=== PATIENT | female | born 1945 | race Caucasian/White ===

== ENCOUNTER 2018-08-19 16:51 | Emergency (ER) | payer OTHER ==
[~2018-08-19] VITALS: Ht 154.9 cm; Wt 54.4 kg
[~2018-08-19 16:51] MED LIST: ADVAIR 250-501 EACH INH; ADVAIR HFA 230M12 GM INH; ASPIR 8181 MG PO; ASPIRIN325 PO; CALCIUM + VITA1 EACH PO; CALCIUM 600 +1 EA11 PO; CALCIUM 600 +1 EA12 PO; CELEXA 10 MG TA10 MG; CELEXA40 MG PO; CHANTIX1 MG; CHOLESTEROL MED; CIPRO500 MG PO; CLONIDINE0.1 PO; DOXYCYCLINE 10100 MG PO; DUONEB 2.5-0.5 M3 ML INH; ESTRACE0.5 MG PO; FLEXERIL PO; HYDROCHLOROTHIA25 M1; HYDROCODON-ACE1 EAC7; HYDROCODON-ACE1 EAC7 PO; HYDROCODON-ACE1 EACH PO; LEVAQUIN 500 M500 M2 PO; LISINOPRIL20 MG PO; MAGNESIUM250 M1 PO; MAXZIDE 75-501 EACH PO; MAXZIDE-25 MG1 EACH PO; MELOXICAM15 MG PO; MELOXICAM7.5 MG; MOBIC15 MG PO; NEURONTIN 300300 M1 PO; NEXIUM40 MG PO; OMEPRAZOLE40 MG PO; PACERONE 200 M200 M1 PO; PERCOCET 5-3251 EACH PO; PRAVACHOL40 MG PO; PREDNISONE 10 M10 M1 PO; PREDNISONE 10 M10 MG PO; PREMPRO 0.3 MG1 EACH; PREMPRO 0.45-11 EACH PO; PRILOSEC 20 MG20 MG PO; PRILOSEC40 MG PO; PROAIR HFA8.5 GM INH; PROVERA2.5 MG PO; SINGULAIR 10 MG10 M1 PO; TRAZODONE HCL100 MG PO; TRIAMTERENE-HC1 EAC3 PO; VALIUM5 MG PO; VENTOLIN HFA 1818 GM INH; VICODIN 5-5001 EACH PO; VITAMIN D1000 UNI1 PO; VITAMIN E400 UNI6 PO; ZESTRIL40 MG PO
[2018-08-19 17:13] LABS: ABSOLUTE BASOPHILS 0.1 thou/uL (0.0-0.2); ABSOLUTE EOSINOPHILS 0.2 thou/uL (0.0-0.7); ABSOLUTE LYMPHOCYTES 2.4 thou/uL (0.8-5.3); ABSOLUTE MONOCYTES 0.9 thou/uL (0.0-1.2); ABSOLUTE NEUTROPHILS 6.5 thou/uL (1.6-8.1); BASOPHILS 1.2 %; EOSINOPHILS 1.6 %; HEMATOCRIT 44.4 % (37.0-47.0); HEMOGLOBIN 14.7 gm/dL (12.0-15.0); LYMPHOCYTES 23.7 %; MCV 81.9 fL (80.0-100.0); MONOCYTES 9.3 %; NUCLEATED RBCS 0 /100WBC; PLATELET COUNT* 504 thou/uL (150-400); POLYS 64.2 %; RBC 5.42 mil/uL (4.20-5.00); RDW-CV 14.7 % (10.5-14.5); WBC 10.1 thou/uL (4.0-11.0)
[2018-08-19 17:20] LABS: ANION GAP 6 mmol/L (7-16); BUN 13 mg/dL (7-18); CALCIUM 9.5 mg/dL (8.5-10.1); CHLORIDE 95 mmol/L (98-107); CO2 31 mmol/L (21-32); CREATININE 1.1 mg/dL (0.6-1.3); GLUCOSE 145 mg/dL (70-99); POTASSIUM 3.1 mmol/L (3.5-5.1); SODIUM 132 mmol/L (136-145)
[2018-08-19 17:27] LABS: ALBUMIN 4.2 g/dL (3.4-5.0); ALKALINE PHOSPHATASE 98 U/L (46-116); SGOT 17 U/L (15-37); SGPT 23 U/L (30-65); TOTAL BILIRUBIN 0.3 mg/dL (<0.1-1.0); TOTAL PROTEIN 7.9 g/dL (6.4-8.2); TROPONIN-I LEVEL <0.06 ng/mL (<0.06)
[2018-08-19 18:09] VITALS: BP 152/117
--- NOTE | 2018-08-20 11:37 | EKG ---
[place] [address] ELECTROCARDIOGRAM REPORT Name: CAMMY FULTONLMA LISETTE [id number] Admission: 08/19/18 Attend Phys: Discharge: 08/19/18 Date of : 47 Report #: [id number] THIS REPORT FOR: //name// [facility] ED Test Date: 2018-08-19 Test Time: 17:13:47 Pat Name: LUTHER FULTON Department: Room: Gender: F Advertising Coordinator: Maeve LYNN : 1945 Requested By: Reese Begum Order Number: [id number] MD: Tulio Loredo Measurements Intervals [place] Rate: 91 P: 78 OR: 155 QRS: 81 QRSD: 74 T: 73 QT: 344 QTc: 424 Interpretive Statements Sinus rhythm Borderline right axis deviation Nonspecific T abnormalities, lateral leads Compared to ECG 05/25/2017 23:06:28 T-wave abnormality now present Atrial premature complex(es) no longer present Electronically Signed On 08-20-2018 11:37:08 CDT by Tulio Loredo [email or web address] <ELECTRONICALLY SIGNED> By: Tulio Loredo MD, FAC 08/20/18 1137 1713 1713 Tulio Loredo MD, [facility] /EPI
== END 2018-08-19 18:11 | disposition home or self-care (01) ==
LOC: M.ERS 16:51
PROVIDERS: Family Medicine
DX: M79.641 Pain in right hand (principal); J44.9 Chronic obstructive pulmonary disease, unspecified; E78.5 Hyperlipidemia, unspecified; I10 Essential (primary) hypertension; G62.9 Polyneuropathy, unspecified; F17.210 Nicotine dependence, cigarettes, uncomplicated; Z88.0 Allergy status to penicillin; Z88.2 Allergy status to sulfonamides; Z88.1 Allergy status to other antibiotic agents; Z88.8 Allergy status to other drugs, medicaments and biological substances

== ENCOUNTER 2018-12-28 07:28 | Inpatient (IN) | payer OTHER ==
[~2018-12-28] VITALS: Ht 152.4 cm; Wt 58.6 kg
[2018-12-28 07:35] VITALS: BP 138/69
[2018-12-28] MEDS ORDERED: IPRAT-ALBUT 0.5-3 ML INH (07:57)
[2018-12-28] MEDS ORDERED: FLEXERIL PO (07:57)
[2018-12-28] MEDS ORDERED: VALIUM5 MG PO (07:58)
[2018-12-28] MEDS ORDERED: SINGULAIR 10 MG10 M1 PO (08:00)
[2018-12-28 08:01] LABS: ABSOLUTE BASOPHILS 0.1 thou/uL (0.0-0.2); ABSOLUTE EOSINOPHILS 0.1 thou/uL (0.0-0.7); ABSOLUTE LYMPHOCYTES 1.6 thou/uL (0.8-5.3); ABSOLUTE MONOCYTES 1.2 thou/uL (0.0-1.2); ABSOLUTE NEUTROPHILS 9.3 thou/uL (1.6-8.1); EOSINOPHILS 0.8 %; HEMOGLOBIN 11.7 gm/dL (12.0-15.0); LYMPHOCYTES 13.2 %; MCH 27.4 pg (26.0-34.0); MCHC 32.6 g/dL (28.0-37.0); MONOCYTES 10.1 %; NUCLEATED RBCS 0 /100WBC; PLATELET COUNT* 485 thou/uL (150-400); POLYS 74.9 %; RBC 4.28 mil/uL (4.20-5.00); RDW-CV 13.8 % (10.5-14.5); WBC 12.4 thou/uL (4.0-11.0)
[2018-12-28 08:14] LABS: ANION GAP 11 mmol/L (7-16); BUN 18 mg/dL (7-18); CALCIUM 9.3 mg/dL (8.5-10.1); CHLORIDE 99 mmol/L (98-107); CO2 26 mmol/L (21-32); CREATININE 1.2 mg/dL (0.6-1.3); GLUCOSE 116 mg/dL (70-99); POTASSIUM 3.7 mmol/L (3.5-5.1); SODIUM 136 mmol/L (136-145)
[2018-12-28 08:22] LABS: ALBUMIN 3.7 g/dL (3.4-5.0); ALKALINE PHOSPHATASE 103 U/L (46-116); LIPASE 180 U/L (73-393); SGOT 23 U/L (15-37); SGPT 21 U/L (30-65); TOTAL BILIRUBIN 0.4 mg/dL (<0.1-1.0); TOTAL PROTEIN 7.8 g/dL (6.4-8.2); TROPONIN-I LEVEL <0.06 ng/mL (<0.06)
[2018-12-28] MEDS ORDERED: FLONASE 0.05%50 MCG NASAL (08:28)
--- NOTE | 2018-12-28 13:13 | EKG ---
[place] [address] ELECTROCARDIOGRAM REPORT Name: LUTHER FULTON Room: [place] [address] ADM IN .R.#: [id number] Admission: 12/28/18 Attend Phys: Walker Chance MD Discharge: Date of : 47 Report #: [id number] THIS REPORT FOR: //name// [facility] ED Test Date: 2018-12-28 Test Time: 07:51:35 Pat Name: LUTHER FULTON Department: Room: [facility] Gender: F Fabricator Foam Rubber: López ESPITIA : 1945 Requested By: Noman Borges Order Number: [id number] MD: Moshe Cason Measurements Intervals [place] Rate: 72 P: 67 MD: 165 QRS: 68 QRSD: 84 T: 66 QT: 371 QTc: 406 Interpretive Statements Sinus rhythm Baseline wander in lead(s) V6 Compared to ECG 08/19/2018 17:13:47 T-wave abnormality no longer present Electronically Signed On 12-28-2018 13:13:18 BUILDING CUSTODIAL SUPERVISOR by Moshe Cason [email or web address] <ELECTRONICALLY SIGNED> By: Moshe Cason MD, [facility] 12/28/18 1313 0751 0751 Moshe Cason MD, [facility] /EPI
[2018-12-28 13:30] VITALS: BP 112/60
[2018-12-28 15:56] VITALS: BP 119/60
[2018-12-28 16:00] VITALS: BP 118/63
[2018-12-28 20:00] VITALS: BP 154/58
[2018-12-29] VITALS: BP 142/71
[2018-12-29 04:00] VITALS: BP 144/72
[2018-12-29 04:58] LABS: HEMATOCRIT 29.6 % (37.0-47.0); MCH 28.8 pg (26.0-34.0); MCHC 33.8 g/dL (28.0-37.0); MCV 85.1 fL (80.0-100.0); MPV 7.3 fl. (7.2-11.1); RBC 3.48 mil/uL (4.20-5.00); RDW-CV 13.6 % (10.5-14.5)
[2018-12-29 05:13] LABS: CALCIUM 8.1 mg/dL (8.5-10.1); CREATININE 0.9 mg/dL (0.6-1.3); MAGNESIUM 1.4 mg/dL (1.8-2.4); POTASSIUM 4.5 mmol/L (3.5-5.1)
[2018-12-29 08:00] VITALS: BP 138/96
[2018-12-29 12:10] VITALS: BP 144/75
[2018-12-29 16:17] VITALS: BP 140/70
[2018-12-29 20:00] VITALS: BP 167/72
[2018-12-30] VITALS: BP 165/87; BP 185/87
[2018-12-30 04:00] VITALS: BP 157/70
[2018-12-30 04:49] LABS: HEMATOCRIT 29.8 % (37.0-47.0); HEMOGLOBIN 9.8 gm/dL (12.0-15.0); MCH 27.9 pg (26.0-34.0); MCHC 32.8 g/dL (28.0-37.0); MCV 85.2 fL (80.0-100.0); MPV 6.7 fl. (7.2-11.1); RBC 3.5 mil/uL (4.20-5.00); RDW-CV 14.1 % (10.5-14.5)
[2018-12-30 04:57] LABS: CALCIUM 8.6 mg/dL (8.5-10.1); CREATININE 1.1 mg/dL (0.6-1.3); MAGNESIUM 1.5 mg/dL (1.8-2.4); POTASSIUM 4.2 mmol/L (3.5-5.1)
--- NOTE | 2018-12-30 06:44 | CON ---
[address] [address] CONSULTATION Name: ENRIQUETA FULTONA LISETTE Room: [address] IN M.R.#: [id number] Admission: 12/28/18 Attend Phys: Walker Chance MD Discharge: Date of : 47 Report #: [id number] THIS REPORT FOR: //name// CC: Walker Lucas [facility] Zuri Reyes DATE OF SERVICE: 12/29/2018 PULMONARY CONSULTATION ATTENDING PHYSICIAN: Dr. Walker Chance. LOCATION: The patient is located at room 232. INDICATION FOR CONSULTATION: Hemoptysis, 5 cm right lower lobe infiltrate/mass. CLINICAL SUMMARY: Thank you for allowing me to see the patient for pulmonary consultation today. I saw her at [facility] on Tuesday12/29/2018. The patient is a 73-year-old female, prior heavy smoker, quit a year ago, came in the Emergency Room Department with cough and sputum production. She had some nonmassive hemoptysis. She coughed up some bright red blood yesterday, about a tablespoon full and did that once or twice. She is still having increased wheezing and shortness of breath. She was taking her albuterol inhalers at home. She had a nebulizer machine at home, but did not bother to take any nebulizer treatments. She states she is having some back pain and chest pain with the cough. Low-grade fever. No chills or sweats and she has been sick for a week and a week and a half now. She states she is up to date on her pneumonia vaccines and her flu vaccine immunizations. Denies any sick or ill contacts or recent travel. Has not had problems with bronchitis like this before. States she has lost 10 pounds over the last 2-3 weeks. States food is not tasting good and she is just not hungry. PAST MEDICAL HISTORY: She has a history of right carotid stenosis. She has had a history of some C-spine and back pain. She has had some COPD over the past year or two, but has not been oxygen or steroid dependent. She has also had pancreatitis in the past with some neuropathy and occasionally whether she had a seizure in the past. ALLERGIES: She has allergies or intolerances to CEFDINIR, which gives her some nausea and vomiting. PENICILLIN, which gives her itching. SULFA, which gives some itching and a rash. CEFUROXIME, which gives her loose stools and ERYTHROMYCIN, gives her loose stools. OUTPATIENT MEDICATIONS: Included triamterene 37.5 mg once daily, Meloxicam [address] [place] [address] CONSULTATION Name: DONALDOLUTHER Room: [address] IN M.R.#: [id number] Admission: 12/28/18 Attend Phys: aWlker Chance MD Discharge: Date of : 47 Report #: [id number] mg daily. She is currently on Levaquin 750 mg p.o. daily, trazodone 100 mg at bedtime, montelukast 10 mg at bedtime, Prinivil, dose is 20 mg b.i.d., DuoNeb every 4 hours. Solu-Medrol dose is 40 mg every 8 hours scheduled, fentanyl p.r.n. for pain. Some potassium supplement. She is on oxygen at 2 liters. FAMILY HISTORY: Positive for premature heart disease. SOCIAL HISTORY: States she quit smoking about a year ago and was a pack a day smoker. She has a 57-afdy-glwh history. She lives at home. She denies any alcohol use or occupational exposure. REVIEW OF SYSTEMS: A 14-point review of systems reviewed and was negative except for pertinent positives noted in history and physical exam. PHYSICAL EXAMINATION: GENERAL: A pleasant 73-year-old female, moderately ill, coughing, on oxygen at 2 liters. VITAL SIGNS: Stable. Blood pressure is 144/72, heart rate 76, respirations were 20. Temperature is 36.4 degrees, saturation on 2 liters 96%. She is 5 feet 3 inches tall, weighs 58 kilograms or 128 pounds, BMI is 25. HEENT: Nares and pharynx are clear. Mucous membranes are slightly dry. No thrush noted. NECK: Supple, without any masses or adenopathy. CHEST: Shows bilateral rhonchi with expiratory wheeze, quite tight, a little more prominent on the right than on the left, mostly posteriorly. CARDIOVASCULAR: Shows diminished heart tones, regular rate and rhythm. Heart rate 76. ABDOMEN: Soft, without masses or megaly. EXTREMITIES: No calf tenderness. No cyanosis, clubbing or edema. NEUROLOGIC: Grossly intact. She can move all fours upon command. Sit up in the bed without problems. LABORATORY DATA: From 12/29/2018 shows hemoglobin is 10, white count 10,000, platelets are 391,000, normal differential. Sodium is 137, potassium is 4.5, BUN is 13, creatinine is 0.9 and glucose is 168, calcium is 8.1, magnesium low at 1.4, being repleted. Troponins were negative. Albumin is 3.7. A chest x-ray was relatively negative. CT of the chest showed a 5 x 6 cm right lower lobe infiltrate, some air bronchograms are noted in it, inferiorly it appears to be little bit more positive, it is up to the pleural space, but there is no pleural effusion. There is no rub and erosion of the ribs and a 1.5 cm right hilar adenopathy could be reactive. COPD and emphysema is noted in the upper lobes. No other masses or tumors are noted. There is a patchy infiltrate in the right upper lobe and then the right lower lobe where most of the infiltrate is at, there is no pulmonary embolism on the CTA. IMPRESSION: [facility] [address] [place] [id number] CONSULTATION Name: LUTHER FULTON Room: [address] ADM IN M.R.#: [id number] Admission: 12/28/18 Attend Phys: Walker Chance MD Discharge: Date of : 47 Report #: [id number] 1. Non-massive hemoptysis with right lower lobe infiltrate, most likely infectious pneumonia. Could be mostly inflammatory process. Need to rule out an early bronchogenic carcinoma with smoking history and weight loss. 2. Chronic obstructive pulmonary disease with smoking history. The patient needs to make sure she has absolute abstinence from cigarettes. PLAN: She is too wheezy to put a bronchoscope down today. We were having some scheduling issues next week, so we will schedule for Tuesday at 8:00 a.m. on 01/02/2019. The indications, benefits and risks have been explained to the patient. She understands and agrees. We will give her a couple of days of the steroids and antibiotics to see if that has cleared up the pneumonia. We will do a followup chest x-ray, Tuesday, make sure she is stable. She is off any aspirin or anticoagulants. Hopefully, this will be just inflammatory process. She needs a followup CT of the chest, depending what the chest x-ray shows in probably 2-3 months to make certain we are stable. She has occasional sinus drainage and negative esophageal reflux, need to make sure sinus drainage is treated. We will treat her for COPD, may need full PFTs in the future in 4-6 weeks. Thanks again for allowing us to participate in this challenging lady's care. We will follow up along with you and we will have more recommendations after bronchoscopy. <ELECTRONICALLY SIGNED> By: Vicky Velasquez MD 12/30/18 0644 1159 0219Aangelique Nichole MD /nt
[2018-12-30 08:00] VITALS: BP 182/84
[2018-12-30 12:00] VITALS: BP 166/77
[2018-12-30 16:00] VITALS: BP 158/75
[2018-12-30 20:00] VITALS: BP 209/109
[2018-12-31] VITALS (8 sets, daily range): BP systolic 145–199; BP diastolic 66–96
[2018-12-31 04:49] LABS: HEMATOCRIT 30.6 % (37.0-47.0); MCH 27.5 pg (26.0-34.0); MCHC 32.8 g/dL (28.0-37.0); MCV 84.1 fL (80.0-100.0); MPV 7.1 fl. (7.2-11.1); NUCLEATED RBCS 0 /100WBC; PLATELET COUNT* 478 thou/uL (150-400); RBC 3.63 mil/uL (4.20-5.00); RDW-CV 14.2 % (10.5-14.5); WBC 15.6 thou/uL (4.0-11.0)
[2018-12-31 04:54] LABS: INR 1.1; PROTIME 11.1 Seconds (9.20-11.50)
[2018-12-31 04:58] LABS: CALCIUM 8.8 mg/dL (8.5-10.1); CREATININE 1.1 mg/dL (0.6-1.3); MAGNESIUM 1.3 mg/dL (1.8-2.4); POTASSIUM 3.9 mmol/L (3.5-5.1)
[2018-12-31 06:03] LABS: ABSOLUTE LYMPHOCYTES 0.8 thou/uL (0.8-5.3); ABSOLUTE MONOCYTES 0.6 thou/uL (0.0-1.2); ABSOLUTE NEUTROPHILS 14.2 thou/uL (1.6-8.1); METAMYELOCYTES 1 %
[2018-12-31 06:04] LABS: PLATELET ESTIMATE INCREASED
[2019-01-01] VITALS: BP 149/85
[2019-01-01 04:00] VITALS: BP 152/68
[2019-01-01 05:00] LABS: HEMATOCRIT 32.4 % (37.0-47.0); HEMOGLOBIN 10.8 gm/dL (12.0-15.0); MCH 27.9 pg (26.0-34.0); MCHC 33.4 g/dL (28.0-37.0); MCV 83.4 fL (80.0-100.0); RBC 3.88 mil/uL (4.20-5.00); RDW-CV 14.4 % (10.5-14.5); WBC 13.3 thou/uL (4.0-11.0)
[2019-01-01 05:05] LABS: CALCIUM 8.5 mg/dL (8.5-10.1); CREATININE 1.1 mg/dL (0.6-1.3); MAGNESIUM 1.5 mg/dL (1.8-2.4); POTASSIUM 3.2 mmol/L (3.5-5.1)
[2019-01-01 08:00] VITALS: BP 162/76
[2019-01-01 12:00] VITALS: BP 145/82
[2019-01-01 16:00] VITALS: BP 151/93
[2019-01-01 20:00] VITALS: BP 162/87
[2019-01-02] VITALS (7 sets, daily range): BP systolic 118–176; BP diastolic 52–93
--- NOTE | 2019-01-02 12:19 | PROC ---
[facility] [address] [place] [address] PROCEDURE REPORT Name: LUTHER FULTON Room: [address] IN M.R.#: [id number] Admission: 12/28/18 Attend Phys: Walker Chance MD Discharge: Date of : 47 Report #: [id number] THIS REPORT FOR: //name// CC: Walker Lucas MD DATE OF SERVICE: 01/02/2019 INPATIENT BRONCHOSCOPY REPORT ATTENDING PHYSICIAN: Walker Chance M.D. PRIMARY CARE PHYSICIAN: Lucero Lucas M.D. PREOPERATIVE DIAGNOSES: Right lower lobe infiltrate and hemoptysis. POSTOPERATIVE DIAGNOSES: Right lower lobe infiltrate and hemoptysis. No endobronchial lesions. Mild erythema of the right lower lobe. No active bleeding. COMPLICATIONS: None. INDICATIONS FOR PROCEDURE: The patient is a 73-year-old female, current smoker, with a right lower lobe infiltrate, which appear to be clearing on chest x-ray. She had some non-massive hemoptysis for the first couple of days. She has also had some weight loss. With her smoking history and weight loss, bronchoscopy is indicated to evaluate for endobronchial lesion to obtain specimens. Indications, benefits and risks of bronchoscopy and possible biopsy were explained to the patient. She understood and agreed. Informed consent was obtained. Prior to procedure, the patient had a few end-expiratory wheezes. Cardiovascular was regular rate and rhythm with a heart rate in the 90s to a 100s. Blood pressure is mildly elevated at 190/100. It came down with sedation and O2 sats on room air were 93% to 94%. She was on 4 liters and the lowest dip was 93%. Appropriate verbal timeout was taken. This was correct procedure for the correct patient. Other premedication consisted of meperidine 50 mg and Robinul 0.1 mg IM prior to procedure and then fentanyl 50 mcg and Versed 5 mg in incremental doses were given during the procedure. Again, O2 stayed above 93% on 4-5 liters. DESCRIPTION OF PROCEDURE: Flexible fiberoptic bronchoscopy was carried out via left transnasal route subsegmental level. Nasopharynx and vocal cords were normal. Vocal cords opposed normally. Trachea and shahnaz was normal. Shahnaz was sharp. Left lung was normal, without any [place]ob[place] [address] PROCEDURE REPORT Name: LUTHER FULTON Room: [address] IN [facility]#: [id number] Admission: 12/28/18 Attend Phys: Walker Chance MD Discharge: Date of : 47 Report #: [id number] abnormalities. Right lung showed a normal right upper lobe. Right middle lobe was within normal limits. Right lower lobe had some mild erythema, but no endobronchial lesions, no active bleeding. The posterior basilar segment was used and the following specimens were obtained. Micro brush and a bronchial wash for Gram stain, C and S, AFB smear culture and fungal smear with culture. Slides x 3 in a second bronchial wash were sent for cytology for chronic bronchitis and right lower lobe infiltrate and hemoptysis to evaluate for possible malignant process. It could be inflammatory also. The patient had a moderate amount of coughing during the procedure and had some wheezing. Sats stayed okay. Bronchoscope was then withdrawn without incident. The patient tolerated the procedure well. She will be given the post-procedure albuterol nebulizer treatment. She can be discharged home around 02:00 today if she is stable and back on room air. She has nebulizer treatments at home. She will need a prednisone taper and some antibiotics. Again encouraged the patient to stay away from cigarettes and continue to discontinue smoking. She will call the office in 1 week and she has our card with my name on it. She will call on 01/10/2019 after 03:00 in the afternoon and get her results. If they are negative, then she will need a followup CT of the chest in late 02/2019, follow up on that right lower lobe infiltrate, which appears to be clearing on chest x-ray. No complications to the above procedure. <ELECTRONICALLY SIGNED> By: Quentin Nichole MD 01/02/19 1219 0851 0927Quentin Nichole MD /nt
[2019-01-02 15:51] LABS: URINE BILIRUBIN NEGATIVE (Negative); URINE BLOOD NEGATIVE (Negative); URINE CLARITY CLEAR; URINE COLOR YELLOW; URINE GLUCOSE-RANDOM NEGATIVE (Negative); URINE KETONES NEGATIVE (Negative); URINE LEUKOCYTES-REFLEX NEGATIVE (Negative); URINE NITRITE-REFLEX NEGATIVE (Negative); URINE PROTEIN 1+ (Negative); URINE UROBILINOGEN 0.2 E.U./dl (0.2-1.0)
[2019-01-03] VITALS: BP 169/70
[2019-01-03 07:30] VITALS: BP 184/105
[2019-01-03] MEDS ORDERED: LEVAQUIN 750 M750 MG PO (11:18)
[2019-01-03] MEDS ORDERED: PREDNISONE 20 M20 MG PO (11:18)
[2019-01-03] MEDS ORDERED: ALBUTEROL SULFAT2 MG PO (11:18)
[2019-01-03 12:57] VITALS: BP 184/105
--- NOTE | 2019-01-05 16:10 | PATH ---
[address] [address] PATHOLOGY RPT PROCEDURE Name: LUTHER FULTON Room: [address] IN .R.#: [id number] Admission: 12/28/18 Date of : 47 Discharge: 01/03/19 Report #: [id number] Path Case #: [id number] Note [facility] Accession Number: [id number] TESTS RESULT FLAG UNITS REF RANGE LAB Clinician Provided Cytology Information No. of containers..01 Other (Miscellaneous) Source: [A] 01 BRUSHINGS RLL Clinician ICD10: 01 A41.9 J18.9 DIAGNOSIS: [A] 02 BRUSHINGS RLL OBSCURING ACUTE INFLAMMATION IN ASSOCIATION WITH FEW ATYPICAL CELLS AND REACTIVE BRONCHIAL EPITHELIAL CELLS. SEE COMMENT. COMMENT: ATYPICAL CELLS ARE FAVORED ATYPICAL/REACTIVE SQUAMOUS METAPLASTIC CELLS HOWEVER OBSCURING INFLAMMATION AND SOME AIR DRYING ARTIFACT PREVENT FURTHER CHARACTERIZATION. NO DEFINITE MALIGNANT CELLS ARE SEEN. REVIEWED WITH DR. SMITH GARCIA WHO AGREES WTIH THE DIAGNOSIS. Diagnosis provided b 02 Colin Gordillo MD, Pathologist NPI- [id number] Signed out by: 03 Colin Gordillo MD, Pathologist NPI- [id number] Performed by: 01 Sascha Jon, Cro (ASCP) FLAG LEGEND: L-Low Normal,H-High Normal,LL-Alert Low,HH-Alert High <-Panic Low,>-Panic High,A-Abnormal,AA-Critical Abnormal Performed at: 01 [place] [id number] [place] [address] Randall Mariano MD, 02 [facility] [address] [facility] [address] Colin Gordillo MD, 03 [facility] [address] [place] [address] Colin Gordillo MD, Specimen Comment: A courtesy copy of this report has been sent to Specimen Comment: [phone]. Specimen Comment: [place] [address] PATHOLOGY RPT PROCEDURE Name: LUTHER FULTON Room: [address] IN M.R.#: [id number] Admission: 12/28/18 Date of : 47 Discharge: 01/03/19 Report #: [id number] Path Case #: [id number] Performed at: 01 [facility] [place] [address], [place], [place] [id number] MD Randall Mariano MD Phone: [phone]
== END 2019-01-03 13:40 | disposition home or self-care (01) | DRG 871 ==
LOC: M.ERS 07:28 → M.TBA-ER 09:31 → M.2W 09:31
PROVIDERS: Emergency Medicine Emergency Medical Services; Internal Medicine; Internal Medicine Pulmonary Disease; ADMIT Internal Medicine
PROC: 0BD68ZX Extraction of Right Lower Lobe Bronchus, Via Natural or Artificial Opening Endoscopic, Diagnostic (ICD-10-PCS; principal; 2019-01-02)
DX: A41.9 Sepsis, unspecified organism (principal); J18.1 Lobar pneumonia, unspecified organism; J44.1 Chronic obstructive pulmonary disease with (acute) exacerbation; J44.0 Chronic obstructive pulmonary disease with (acute) lower respiratory infection; R04.2 Hemoptysis; R13.10 Dysphagia, unspecified; R09.1 Pleurisy; I95.2 Hypotension due to drugs; N18.3 Chronic kidney disease, stage 3 (moderate); R91.8 Other nonspecific abnormal finding of lung field; I12.9 Hypertensive chronic kidney disease with stage 1 through stage 4 chronic kidney disease, or unspecified chronic kidney disease; F17.210 Nicotine dependence, cigarettes, uncomplicated; G62.9 Polyneuropathy, unspecified; D64.9 Anemia, unspecified; Z79.51 Long term (current) use of inhaled steroids; Z79.899 Other long term (current) drug therapy; Z88.0 Allergy status to penicillin; Z88.1 Allergy status to other antibiotic agents; Z88.2 Allergy status to sulfonamides; Z88.8 Allergy status to other drugs, medicaments and biological substances; Z79.1 Long term (current) use of non-steroidal anti-inflammatories (NSAID)

== ENCOUNTER 2019-01-15 00:21 | Emergency (ER) | payer OTHER ==
[~2019-01-15] VITALS: Ht 154.9 cm; Wt 54.4 kg
[~2019-01-15 00:21] MED LIST changes: +ALBUTEROL SULFAT2 MG PO; +FLONASE 0.05%50 MCG NASAL; +IPRAT-ALBUT 0.5-3 ML INH; +LEVAQUIN 750 M750 MG PO; +PREDNISONE 20 M20 MG PO
[2019-01-15 00:54] LABS: ABSOLUTE BASOPHILS 0.1 thou/uL (0.0-0.2); ABSOLUTE EOSINOPHILS 0.1 thou/uL (0.0-0.7); ABSOLUTE LYMPHOCYTES 2.9 thou/uL (0.8-5.3); ABSOLUTE MONOCYTES 1.4 thou/uL (0.0-1.2); ABSOLUTE NEUTROPHILS 11.1 thou/uL (1.6-8.1); BASOPHILS 0.8 %; EOSINOPHILS 0.5 %; HEMATOCRIT 37.5 % (37.0-47.0); HEMOGLOBIN 12.3 gm/dL (12.0-15.0); LYMPHOCYTES 18.6 %; MCH 27.5 pg (26.0-34.0); MCHC 32.7 g/dL (28.0-37.0); MONOCYTES 9.2 %; MPV 6.4 fl. (7.2-11.1); NUCLEATED RBCS 0 /100WBC; PLATELET COUNT* 425 thou/uL (150-400); POLYS 70.9 %; RBC 4.47 mil/uL (4.20-5.00); RDW-CV 15.1 % (10.5-14.5); WBC 15.7 thou/uL (4.0-11.0)
[2019-01-15 01:04] LABS: PROTIME 10.3 Seconds (9.20-11.50)
[2019-01-15 01:09] LABS: ANION GAP 4 mmol/L (7-16); BUN 21 mg/dL (7-18); CALCIUM 9.4 mg/dL (8.5-10.1); CHLORIDE 98 mmol/L (98-107); CO2 33 mmol/L (21-32); CREATININE 0.9 mg/dL (0.6-1.3); GLUCOSE 79 mg/dL (70-99); POTASSIUM 3.7 mmol/L (3.5-5.1); SODIUM 135 mmol/L (136-145); TROPONIN-I LEVEL <0.06 ng/mL (<0.06)
[2019-01-15 01:11] LABS: ALBUMIN 3.4 g/dL (3.4-5.0); ALKALINE PHOSPHATASE 81 U/L (46-116); NT-PRO BRAIN NAT PEPTIDE 1174 pg/mL (<300); SGOT 14 U/L (15-37); SGPT 30 U/L (30-65); TOTAL BILIRUBIN 0.3 mg/dL (<0.1-1.0); TOTAL PROTEIN 6.6 g/dL (6.4-8.2)
[2019-01-15 03:16] LABS: URINE BILIRUBIN NEGATIVE (Negative); URINE BLOOD NEGATIVE (Negative); URINE CLARITY CLEAR; URINE COLOR YELLOW; URINE GLUCOSE-RANDOM NEGATIVE (Negative); URINE KETONES NEGATIVE (Negative); URINE LEUKOCYTES-REFLEX 1+ (Negative); URINE NITRITE-REFLEX NEGATIVE (Negative); URINE PROTEIN 1+ (Negative); URINE UROBILINOGEN 0.2 E.U./dl (0.2-1.0)
[2019-01-15 03:45] LABS: CASTS None Seen /LPF (None Seen); SQUAMOUS 4-10 Moderate /LPF (0-3)
[2019-01-15 03:46] LABS: URINE RBC None Seen /HPF (0-2); URINE WBC-REFLEX 6-15 Few /HPF (0-5)
[2019-01-15 03:47] LABS: BACTERIA-REFLEX 1-9 Few /HPF (None Seen); CRYSTALS None Seen /LPF (None Seen); RENAL EPITHELIAL CELLS 0-3 Few /LPF (None Seen)
[2019-01-15] MEDS ORDERED: LEVAQUIN 500 M500 MG PO (03:49)
[2019-01-15] MEDS ORDERED: CIPROFLOXACIN500 M1 PO (03:59)
[2019-01-15 04:15] VITALS: BP 172/80
--- NOTE | 2019-01-15 16:07 | EKG ---
[place] [address] ELECTROCARDIOGRAM REPORT Name: DONALDOLUTHER [facility] [id number] Admission: 01/15/19 Attend Phys: Discharge: 01/15/19 Date of : 47 Report #: [id number] THIS REPORT FOR: //name// [facility] ED Test Date: 2019-01-15 Test Time: 00:25:30 Pat Name: LUTHER FULTON Department: Room: Gender: F Phlebotomy Support Tech: : 1945 Requested By: Francine Van Order Number: [id number] MD: Og Gambino Measurements Intervals [place] Rate: 75 P: 42 HI: 66 QRS: 70 QRSD: 77 T: 69 QT: 379 QTc: 424 Interpretive Statements Sinus rhythm Supraventricular bigeminy Short HI interval Minimal ST depression, anterolateral leads Compared to ECG 12/28/2018 07:51:35 Atrial premature complex(es) now present Short HI interval now present ST (T wave) deviation now present Electronically Signed On 01-15-2019 16:07:14 INTERNATIONAL RELATIONS PROFESSOR by Og Gambino [email or web address] <ELECTRONICALLY SIGNED> By: Og Gambino MD, [facility] 01/15/19 1607 0025 0025 Og Gambino MD, [facility] /EPI
== END 2019-01-15 04:15 | disposition home or self-care (01) ==
LOC: M.ERS 00:21
PROVIDERS: Emergency Medicine
DX: N39.0 Urinary tract infection, site not specified (principal); J06.9 Acute upper respiratory infection, unspecified; I10 Essential (primary) hypertension; E78.5 Hyperlipidemia, unspecified; J44.9 Chronic obstructive pulmonary disease, unspecified; F17.210 Nicotine dependence, cigarettes, uncomplicated; Z88.0 Allergy status to penicillin; Z88.1 Allergy status to other antibiotic agents; Z88.2 Allergy status to sulfonamides; Z88.8 Allergy status to other drugs, medicaments and biological substances

== ENCOUNTER → 2019-03-28 | Outpatient (CLI) | payer OTHER ==
[~2019-03-28] MED LIST changes: +CIPROFLOXACIN500 M1 PO; +LEVAQUIN 500 M500 MG PO
== END ==
LOC: M.CT 08:38
DX: Z12.31 Encounter for screening mammogram for malignant neoplasm of breast (principal); J98.4 Other disorders of lung; K46.9 Unspecified abdominal hernia without obstruction or gangrene

== ENCOUNTER → 2019-04-16 | Outpatient (CLI) | payer OTHER | LOC: M.ULTRA 08:57 | DX: N63.22 Unspecified lump in the left breast, upper inner quadrant (principal); N63.10 Unspecified lump in the right breast, unspecified quadrant ==

== ENCOUNTER → 2019-05-09 | Outpatient (CLI) | payer OTHER ==
--- NOTE | 2019-05-11 14:05 | PATH ---
[address] [address] PATHOLOGY RPT PROCEDURE Name: DONALDOLUTHER NIXE Room: [facility].Tam.#: [id number] Admission: 05/09/19 Date of : 47 Discharge: Report #: [id number] Path Case #: [id number] [facility] Accession Number: [id number] . 01 Material submitted: . PART A: breast - LEFT BREAST 1:00, 8 CM FN. Modifiers: left, 0.33 X 0.32 X 0.47 CM PART B: breast - LEFT BREAST 9:00, 3 CM FN. Modifiers: left, 0.31 X 0.45 X 0.29 CM . 01 Clinical history: . A: left breast, 0.33 x 0.32 x 0.47 cm, 1:00, 8 cm from nipple B: left breast, 0.31 x 0.45 x 0.29 cm, 9:00, 3 cm from nipple . 02 Diagnosis: A. Breast, left, 1:00, 8 cm from nipple, core needle biopsy: - Mild chronic inflammation. - Simple cyst. - Stromal fibrosis. - No evidence of atypia or malignancy. . B. Breast, left, 9:00, 3 cm from nipple: - Simple cysts. - Papillary apocrine metaplasia. - No evidence of atypia or malignancy. . (Please see comment) . (SK:mmeulalio; 05/10/2019) [facility]/05/10/2019 . 02 Comment: This case has also been reviewed by Dr. Yady Jimenez who agrees with the diagnosis. . (SKM:mmeulalio; 05/10/2019) . 02 Electronically signed: . Santhosh Booth MD, Pathologist NPI- [id number] . 01 Gross description: . A. The specimen is received in formalin, labeled "Luther Berry, left breast 1:00, 8 cm from nipple", are two fibrofatty cores measuring 2.0 x 0.7 x 0.3 cm in aggregate. The specimen is entirely submitted in A1-A2. Specimen excised at: 0916 on 05/09/19, placed in formalin at: 0920 on 05/09/19, formalin exposure: 14 hours and 20 [place] [address] PATHOLOGY RPT PROCEDURE Name: LUTHER BERRY Room: [facility] Heart#: [id number] Admission: 05/09/19 Date of : 47 Discharge: Report #: [id number] Path Case #: [id number] B. The specimen is received in formalin, labeled "Luther Berry, left breast 9:00, 3 cm from nipple", are two fibrofatty cores measuring 1.7 x 0.8 x 0.3 cm in aggregate. The specimen is entirely submitted in B1-B2. Specimen excised at: 0947 on 05/09/19, placed in formalin at: 0949 on 05/09/19, formalin exposure: Approximately 13 hours and 51 minutes. ([facility]; 05/09/2019) SHS/QMS . 02 Pathologist provided ICD-10: N61.0, N60.02, N60.32, N60.82 . 02 CPT . [id number], [id number] Specimen Comment: A courtesy copy of this report has been sent to Specimen Comment: [phone], , . Specimen Comment: Report sent to DR GUERRA,DR LECHUGA / DR SHORE Performed at: 01 [facility] [address] [facility] [address], [place], [place] [id number] MD Randall Mariano MD Phone: [phone] Performed at: 02 [facility] [address] [id number] MD Gucci Serrano MD Phone: [phone]
== END | disposition home or self-care (01) ==
LOC: M.ULTRA 04-30 08:30
DX: N61.0 Mastitis without abscess (principal); N60.02 Solitary cyst of left breast; N60.32 Fibrosclerosis of left breast; N60.82 Other benign mammary dysplasias of left breast; J44.9 Chronic obstructive pulmonary disease, unspecified; I10 Essential (primary) hypertension; F41.9 Anxiety disorder, unspecified; Z87.19 Personal history of other diseases of the digestive system; G62.9 Polyneuropathy, unspecified; Z79.82 Long term (current) use of aspirin; Z88.2 Allergy status to sulfonamides; Z88.0 Allergy status to penicillin; Z79.899 Other long term (current) drug therapy; Z88.8 Allergy status to other drugs, medicaments and biological substances; Z98.890 Other specified postprocedural states

== ENCOUNTER 2020-06-11 09:12 | Inpatient (IN) | payer OTHER ==
[~2020-06-11] VITALS: Ht 154.9 cm; Wt 62.6 kg
[2020-06-11 09:17] VITALS: BP 99/57
[2020-06-11 15:59] LABS: URINE BLOOD 2+ (Negative); URINE CLARITY CLOUDY; URINE COLOR YELLOW; URINE GLUCOSE-RANDOM NEGATIVE (Negative); URINE KETONES TRACE (Negative); URINE LEUKOCYTES-REFLEX 1+ (Negative); URINE NITRITE-REFLEX NEGATIVE (Negative); URINE PROTEIN 2+ (Negative); URINE SPECIFIC GRAVITY >= 1.030 (1.005-1.030); URINE UROBILINOGEN 0.2 E.U./dl (0.2-1.0)
[2020-06-11 16:05] LABS: ICTOTEST (BILI CONFIRMATORY) Negative (Negative); URINE BILIRUBIN 1+ (Negative)
[2020-06-11 16:12] LABS: ABSOLUTE EOSINOPHILS 0.1 thou/uL (0.0-0.7); ABSOLUTE LYMPHOCYTES 0.7 thou/uL (0.8-5.3); ABSOLUTE MONOCYTES 0.9 thou/uL (0.0-1.2); ABSOLUTE NEUTROPHILS 11.9 thou/uL (1.6-8.1); BASOPHILS 0.3 %; EOSINOPHILS 0.5 %; HEMATOCRIT 38.2 % (37.0-47.0); HEMOGLOBIN 12.7 gm/dL (12.0-15.0); LYMPHOCYTES 5.2 %; MCH 27.5 pg (26.0-34.0); MCHC 33.3 g/dL (28.0-37.0); MCV 82.6 fL (80.0-100.0); MONOCYTES 6.9 %; MPV 7.2 fl. (7.2-11.1); NUCLEATED RBCS 0 /100WBC; PLATELET COUNT* 414 thou/uL (150-400); POLYS 87.1 %; RBC 4.62 mil/uL (4.20-5.00); RDW-CV 14.3 % (10.5-14.5); WBC 13.7 thou/uL (4.0-11.0)
[2020-06-11 16:17] LABS: MUCUS None Seen strn/LPF (None Seen); SQUAMOUS >10 Many /LPF (0-3)
[2020-06-11 16:18] LABS: AMORPHOUS URATES Few /LPF (None Seen); HYALINE CASTS 4-10 Moderate /LPF (None Seen); URINE RBC 0-2 Rare /HPF (0-2); URINE WBC-REFLEX 0-5 Rare /HPF (0-5)
[2020-06-11 16:19] LABS: BACTERIA-REFLEX 1-9 Few /HPF (None Seen)
[2020-06-11 16:28] LABS: CALCIUM 8.7 mg/dL (8.5-10.1); CREATININE 4.8 mg/dL (0.6-1.3); POTASSIUM 3.5 mmol/L (3.5-5.1); TOTAL BILIRUBIN 0.2 mg/dL (<0.1-1.0); TOTAL PROTEIN 8.2 g/dL (6.4-8.2)
[2020-06-11 19:26] VITALS: BP 120/72
[2020-06-11 20:30] VITALS: BP 112/62
[2020-06-12 06:09] LABS: HEMATOCRIT 34.8 % (37.0-47.0); HEMOGLOBIN 11.8 gm/dL (12.0-15.0); MCH 27.8 pg (26.0-34.0); MCHC 33.8 g/dL (28.0-37.0); MCV 82.2 fL (80.0-100.0); MPV 6.7 fl. (7.2-11.1); RBC 4.23 mil/uL (4.20-5.00); RDW-CV 14.5 % (10.5-14.5); WBC 9.9 thou/uL (4.0-11.0)
[2020-06-12 06:30] LABS: ALBUMIN 3.5 g/dL (3.4-5.0); CALCIUM 7.4 mg/dL (8.5-10.1); CREATININE 3.1 mg/dL (0.6-1.3); MAGNESIUM 1.7 mg/dL (1.8-2.4); POTASSIUM 3.3 mmol/L (3.5-5.1); TOTAL BILIRUBIN 0.1 mg/dL (<0.1-1.0)
--- NOTE | 2020-06-12 06:30 | NUR ---
Admit at start of shift she was having several loose stools. She has anxiety. She has been saying that she has pain in her neck & back.pain meds given. She has consults for GI and Nephrology they were both called to answering service this am. She hasn't had anything by mouth since midnight except pain med with sip of water. She needs reminding to keep her arm straight b/c of IV.
[2020-06-12 08:17] VITALS: BP 93/62
--- NOTE | 2020-06-12 11:06 | NUR ---
CM COMPLETED INITIAL ASSESSMENT TO DISCUSS D/C PLANNING. PT LIVES W/SPOUSE. PT HAS MEDIOCRE SUPPORT FROM FRIENDS AND [employer]. PT HAS HX W/HH AND SNF AFTER "NECK SURGERY ABOUT TWO YEARS AGO." PT HAS ACUTE RENAL FAILURE. PT MAY POSSIBLY NEED HH. PT HAS CANE D/T 30 YRS WORTH OF BACK PX FROM [facility] FOR [facility]TR. CM TO CONT TO FOLLOW.
[2020-06-12 16:00] VITALS: BP 104/43
--- NOTE | 2020-06-12 17:07 | NUR ---
PATIENT HAS BEEN UP TO THE SHOWER TODAY AND HAD HER LINENS CHANGED. SHE HAS NAPPED OFF AND ON IN THE BED. SHE DOES GET UP AND AMBULATE TO THE BATHROOM WITH STAND BY ASSIST BUT SOMETIMES WILL NOT TURN ON THE CALL LIGHT IN THE BATHROOM AND WILL GET UP AND AMBULATE TO THE BED. SO I JUST STAY SWITH HER WHILE SHE IS IN THE BATHROOM. SHE IS ALERT AND ORIENTED X 4 MAKES HER NEEDS KNOWN WELL. CALL LIGHT IN EASY REACH. SHE IS EATING SUPPER AT THIS TIME. DENIES ANY NEEDS OR WANTS. I ONLY MEDICATED HER FOR CHRONIC BACK PAIN ONCE TODAY.
[2020-06-12 21:30] VITALS: BP 119/68
[2020-06-13 03:48] LABS: ABSOLUTE BASOPHILS 0.1 thou/uL (0.0-0.2); ABSOLUTE EOSINOPHILS 0.4 thou/uL (0.0-0.7); ABSOLUTE LYMPHOCYTES 1.2 thou/uL (0.8-5.3); ABSOLUTE MONOCYTES 0.5 thou/uL (0.0-1.2); BASOPHILS 0.8 %; EOSINOPHILS 5.6 %; HEMATOCRIT 31.2 % (37.0-47.0); HEMOGLOBIN 10.5 gm/dL (12.0-15.0); LYMPHOCYTES 16.8 %; MCH 27.9 pg (26.0-34.0); MCHC 33.7 g/dL (28.0-37.0); MCV 82.6 fL (80.0-100.0); MONOCYTES 7.5 %; MPV 6.5 fl. (7.2-11.1); NUCLEATED RBCS 0 /100WBC; PLATELET COUNT* 353 thou/uL (150-400); POLYS 69.3 %; RBC 3.78 mil/uL (4.20-5.00); RDW-CV 14.3 % (10.5-14.5); WBC 7.2 thou/uL (4.0-11.0)
[2020-06-13 04:05] LABS: ALBUMIN 3.1 g/dL (3.4-5.0); CALCIUM 7.3 mg/dL (8.5-10.1); POTASSIUM 3.8 mmol/L (3.5-5.1); TOTAL BILIRUBIN 0.2 mg/dL (<0.1-1.0); TOTAL PROTEIN 6.3 g/dL (6.4-8.2)
[2020-06-13 04:08] LABS: CREATININE 1.3 mg/dL (0.6-1.3)
[2020-06-13 04:16] LABS: CALCIUM 7.7 mg/dL (8.5-10.1); POTASSIUM 4.2 mmol/L (3.5-5.1)
[2020-06-13 04:17] LABS: CREATININE 1.3 mg/dL (0.6-1.3)
[2020-06-13 06:41] LABS: URINE BILIRUBIN NEGATIVE (Negative); URINE BLOOD TRACE (Negative); URINE CLARITY CLEAR; URINE COLOR YELLOW; URINE GLUCOSE-RANDOM NEGATIVE (Negative); URINE KETONES NEGATIVE (Negative); URINE LEUKOCYTES TRACE (Negative); URINE NITRITE NEGATIVE (Negative); URINE PROTEIN NEGATIVE (Negative); URINE UROBILINOGEN 0.2 E.U./dl (0.2-1.0)
--- NOTE | 2020-06-13 06:44 | NUR ---
PT A&OX4, ON ROOM AIR, VSS, IV FLUIDS INFUSING ORDERED, PT UP WITH SB ASSIST, CONTACT ISOLATION MAINTAINED. PT BLADDER SCANNED AT APPROX 0455 FOLLOWING VOID OF 350 ML, BLADDER SCAN AMOUNT 767, MENDEZ INSERTED ORDERED, CATHETER OUTPUT 550 ML. HOURLY ROUNDINGS COMPLETE. WILL CONTINUE TO MONITOR.
[2020-06-13 06:53] LABS: SQUAMOUS NONE SEEN /LPF (0-3)
[2020-06-13 06:54] LABS: BACTERIA 1-9 Few /HPF (None Seen); CASTS None Seen /LPF (None Seen); MUCUS None Seen strn/LPF (None Seen); URINE RBC 0-2 Rare /HPF (0-2); URINE WBC 6-15 Few /HPF (0-5)
[2020-06-13 06:55] LABS: CRYSTALS None Seen /LPF (None Seen)
[2020-06-13 08:00] VITALS: BP 120/63
--- NOTE | 2020-06-13 11:23 | CON ---
[address] [address] CONSULTATION Name: LUTHER FULTON Room: [address] IN M.R.#: [id number] Admission: 06/12/20 Attend Phys: Jessica Martinez MD Discharge: Date of : 47 Report #: [id number] THIS REPORT FOR: //name// cc: Lucero Lucas MD, Katrina MD ~ THIS REPORT FOR: //name// CC: Lucero Martinez DICTATED BY: Isabella Green [facility] DATE OF SERVICE: 06/12/2020 Please note at the time of this dictation, the patient was seen and physically examined by myself. REASON FOR CONSULTATION: Diarrhea, nausea and vomiting. HISTORY OF PRESENT ILLNESS: The patient prior to admission, had had 3-4 days of intractable diarrhea. She states she was going 5+ times an hour with some abdominal discomfort noted. The patient states she had a history of a UTI and was given an antibiotic, which she stopped. She felt her symptoms were not fully gone. She called her PCP back and they represcribed that antibiotic again and she states after she took one dose of that is when her symptoms of diarrhea started. Prior to all of that, she states that her bowels were moving once or twice a day, soft and formed and had no problems up until here recently. She was given Cefdinir on Tuesday. The patient did have a colonoscopy back in 2012 that did show a polyp that looked to be inflammatory as well as random colon biopsies showing microscopic colitis. She does take omeprazole daily for acid reflux, which controls it well. She also takes meloxicam daily 15 mg. ALLERGIES: PENICILLIN, SULFA, ERYTHROMYCIN, CEFDINIR, CEFTRIAXONE, ERYTHROMYCIN. MEDICATIONS: From home, ____, Celexa, meloxicam, Provera, Zestril, Estrace, Flonase, Singulair, Valium, Flexeril, Maxzide, Prilosec, aspirin, Pravachol, and hydrocodone with acetaminophen. PAST MEDICAL HISTORY: Hypertension, neuropathy, hyperlipidemia, COPD, history of pancreatitis, history of carotid stenosis. PAST SURGICAL HISTORY: She had a carotid done in the past, a single parathyroidectomy done, neck surgery, and [place] [address] CONSULTATION Name: ENRIQUETA FULTONA LISETTE Room: [address] IN [facility].#: [id number] Admission: 06/12/20 Attend Phys: Jessica Martinez MD Discharge: Date of : 47 Report #: [id number] FAMILY HISTORY: Negative for any GI or female cancers. SOCIAL HISTORY: She does smoke. Denies any alcohol or illegal drug use. REVIEW OF SYSTEMS: Twelve-point review of systems is essentially negative except what is mentioned in the HPI. PHYSICAL EXAMINATION: VITAL SIGNS: Temperature 36.5, pulse 94, respirations 16, and blood pressure 93/62. HEART: Regular rate and rhythm. LUNGS: Clear. ABDOMEN: Soft, slightly distended with some generalized tenderness noted throughout. LABORATORY DATA: Hemoglobin 11.8 and white count was 13.7 on admission, she is down to 9.9, platelets 350. BUN is 48, creatinine 3.1 with a GFR of 15. LFTs are completely normal. CT of the abdomen and pelvis shows a fatty liver. Gallbladder mildly distended and fluid noted throughout the entire colon. IMPRESSION: 1. Diarrhea. 2. Abdominal pain. 3. Nausea and vomiting, improved. 4. Leukocytosis. 5. Recent antibiotic use. 6. Nonsteroidal anti-inflammatory drug use daily, meloxicam 15 mg. 7. Past history of microscopic colitis in 2012. PLAN: 1. We will await stool cultures, rule out Clostridium difficile. 2. Further recommendations to be made once the above has been noted. 3. Clear liquids. 4. If stool cultures come back negative, the patient may need to undergo a colonoscopy with random colon biopsies to rule out microscopic colitis again. Thank you for allowing us to participate in this patient's care. Please do not hesitate to call with any questions in regard to this consult. Agree with above assessment and plan by Isabella Green <ELECTRONICALLY SIGNED> By: Hernan Vital MD 06/13/20 1123 1013 1027Hernan Vital MD /nt
--- NOTE | 2020-06-13 15:05 | NUR ---
CM SPOKE TO THE PT TO DISUCSS DISCHARGE PLANNING NEEDS AND HH AT D/C. PT IN AGREEMENT WITH HH AND HER FAMIY SUGGEST HH WITH [facility]. PT IN AGREEMENT. CM FAXED PT'S CLINICAL INFO TO [facility]. [facility] ACCEPTS THE PT AND WILL NEED TO BE CALLED AND D/C ORDERS FAXED WHEN AVAILABLE. CM WILL REMAIN AVAILABLE TO ASSIST AND FOLLOW NEEDED. [facility] PHONE: [phone] FAX: [phone]
--- NOTE | 2020-06-13 15:38 | CON ---
[address] [address] CONSULTATION Name: LUTHER FULTON Room: [address] IN [facility].#: [id number] Admission: 06/12/20 Attend Phys: Jessica Martinez MD Discharge: Date of : 47 Report #: [id number] THIS REPORT FOR: //name// cc: Lucero Lucas MD, Katrina MD ~ THIS REPORT FOR: //name// CC: Lucero Martinez DATE OF SERVICE: 06/12/2020 NEPHROLOGY CONSULTATION ATTENDING PHYSICIAN: Jessica Martinez MD REASON FOR NEPHROLOGY CONSULTATION: Acute kidney injury. REASON FOR ADMISSION: Diarrhea, syncopal event, and a fall. HISTORY OF PRESENT ILLNESS: This is a 74-year-old female who presented with a chief complaint of initial coughing and then she became lightheaded and then she had a fall at home. The patient also noted that she probably passed out for less than 30 seconds. She was brought to the ER here. She was found to have a creatinine of 4.[address] scan showed evidence of enteritis. Recently, she took an antibiotic for UTI. She does not recall the name and then she was switched to cefdinir and after one dose of cefdinir, she had vomiting and started having diarrhea. This this happened on Tuesday and Tuesday of last week and she had diarrhea the day of admission, which was yesterday. She was started on IV hydration, creatinine is already coming down with that. At home in addition to other medications, she takes lisinopril, triamterene-hydrochlorothiazide, and meloxicam. She also received a dose of Toradol in the ER. She has been urinating, but her urine output has not been documented. She also had a borderline blood pressure when she came in /. REVIEW OF SYSTEMS: As mentioned in history of present illness. Her abdomen seems to be quite for him. Otherwise, 10-point review of systems done, negative. ALLERGIES: PENICILLIN, SULFA, ERYTHROMYCIN BASE, CEFUROXIME, CEFDINIR. PAST MEDICAL AND SURGICAL HISTORY: Includes blindness in the right eye, hypertension, neck surgery, syncope, blocked right carotid artery, neck surgery for cervical disk disease in 2011, neuropathy, single parathyroid gland removal for hypoparathyroidism, dyslipidemia, COPD, pancreatitis, and carotid stenosis, as mentioned above status [place] [address] CONSULTATION Name: LUTHER FULTON Room: [address] IN [facility]#: [id number] Admission: 06/12/20 Attend Phys: Jessica Martinez MD Discharge: Date of : 47 Report #: [id number] HOME MEDICATIONS: Include hydrocodone, acetaminophen, pravastatin, aspirin, omeprazole, triamterene-hydrochlorothiazide, cyclobenzaprine, diazepam, montelukast, fluticasone, estradiol, lisinopril, medroxyprogesterone, meloxicam, citalopram, trazodone. FAMILY HISTORY: Noncontributory in this 74-year-old female with this history. SOCIAL HISTORY: She lives at home. She does smoke cigarettes. No alcohol or recreational drug use noted. PHYSICAL EXAMINATION: VITAL SIGNS: Blood pressure is 93/62 this morning, pulse rate 94, temperature 36.5, respiratory rate was 16 and her pulse ox was normal 100% on room air. GENERAL: She is awake and alert and she is a little bit distressed because abdomen feels firm and she needed to have a bowel movement. HEAD AND EYES: Atraumatic, normocephalic. Normal conjunctivae. EARS, NOSE, AND THROAT: Normal ears and nose. Mucous membranes are dry. NECK: No JVD. CHEST: Bilaterally diminished breath sounds posteriorly and some wheezing. CARDIOVASCULAR: S1, S2 normal. No murmurs or rubs. ABDOMEN: Soft. Bowel sounds are decreased and nontender. EXTREMITIES: Lower extremities, there is no lower extremity edema. GENITOURINARY: There is no CVA tenderness. NEUROLOGIC: Grossly intact. PSYCHIATRIC: Mood and affect seem to be normal. LABORATORY DATA: WBC 9.9, hemoglobin 11.8, platelet count is 356. Sodium is 130, up from 127. Potassium is 3.3, which is down from 3.5, CO2 was 18, creatinine 3.1, which is down from 4.8. Other labs were reviewed. IMAGING: Chest x-ray, abdominal pelvic CT scan, head CT, lumbar spinal x-ray, and cervical spine x-ray reports were reviewed. ASSESSMENT: 1. Acute kidney injury in the setting of intravascular volume depletion, hypotension, use of NSAID meloxicam at home, triamterene-hydrochlorothiazide, and lisinopril, and diarrhea and vomiting at home. Baseline creatinine is 0.9 in January of last year and creatinine 4.[address] scan showed the kidneys looked normal in size, no hydronephrosis. UA was a contaminated specimen, 2+ blood, 0-2 rbc's per high-power field, 2+ protein. CPK will be checked. 2. Hypotension, likely because of volume depletion. She was also on antihypertensives at home. 3. Diarrhea, abdominal CT scan shows enteritis. 4. Incidental finding of left hemorrhagic ovarian cyst. We will defer to [address] [place] [address] CONSULTATION Name: LUTHER FULTON Room: [address] IN M.R.#: [id number] Admission: 06/12/20 Attend Phys: Jessica Martinez MD Discharge: Date of : 47 Report #: [id number] primary team. 5. Possible syncope could be because of volume depletion, will be a vasovagal episode. 6. History of peripheral neuropathy. 7. History of hypertension, but currently hypotensive. 8. History of dyslipidemia. PLAN: 1. Please replace potassium as per potassium magnesium replacement protocol. I have given her a dose of 40 mEq of potassium this morning. 2. Continue IV fluids, normal saline at 100 mL an hour. Creatinine continues to improve 4.8 initially and now 3.1. 3. Please check a bladder scan to rule out urinary retention. Discussed with the patient's nurse. 4. Please make sure she is on strict I's and O's. 5. We will check a CPK level. 6. We will avoid all nephrotoxic agents. We did not give her any NSAIDs. Try to keep a MAP around 65-70. Thank you for this consultation. We will continue to follow with you. Discussed with the patient and the patient's nurse in detail. <ELECTRONICALLY SIGNED> By: Rosalind Matamoros MD 06/13/20 1538 0915 [id number] melly Knox
--- NOTE | 2020-06-13 17:12 | NUR ---
CM SPOKE TO THE PT TO DISCUSS DISCHARGE PLANNING AND HH. PT REQUEST HH WITH [facility]. CM FAXED PT'S CLINICAL INFO TO [facility] FOR POSSIBLE D/C OVER THE WEEKEND. CM WILL REMAIN AVAILABLE TO ASSIST AND FOLLOW NEEDED.
--- NOTE | 2020-06-13 18:03 | NUR ---
PATIENT ALERT AND ORIENTED X 4. VITAL SIGNS STABLE ON ROOM AIR. UP WITH ASSISTANCE TO THE BATHROOM AND CHAIR. IV PATENT WITH FLUIDS INFUSING. PAIN BEING MANAGED WITH PO MEDICATION. DENIES NAUSEA AT THIS TIME. MENDEZ PATENT AND DRAINING. FALL PRECAUTIONS IN PLACE AND BED ALARM ON. HOURLY ROUNDS MAINTAINED THROUGHOUT THE SHIFT. CALL LIGHT WITHIN REACH. NURSING WILL CONTINUE TO MONITOR.
[2020-06-13 19:52] VITALS: BP 123/85
[2020-06-14 05:24] LABS: HEMATOCRIT 31.5 % (37.0-47.0); HEMOGLOBIN 10.9 gm/dL (12.0-15.0); MCH 28.1 pg (26.0-34.0); MCHC 34.5 g/dL (28.0-37.0); MCV 81.4 fL (80.0-100.0); RBC 3.87 mil/uL (4.20-5.00); RDW-CV 14.5 % (10.5-14.5); WBC 7.1 thou/uL (4.0-11.0)
[2020-06-14 05:41] LABS: ALBUMIN 2.9 g/dL (3.4-5.0); CREATININE 0.9 mg/dL (0.6-1.3); MAGNESIUM 1.3 mg/dL (1.8-2.4); POTASSIUM 3.4 mmol/L (3.5-5.1); TOTAL BILIRUBIN 0.3 mg/dL (<0.1-1.0); TOTAL PROTEIN 5.8 g/dL (6.4-8.2)
--- NOTE | 2020-06-14 06:55 | NUR ---
PT A&OX4, ON ROOM AIR, VSS, IV FLUIDS INFUSING ORDERED, PAIN MEDS REQUESTED AND GIVEN ORDERED. I&O'S MONITORED. MENDEZ IN PLACE. POTASSIUM AND MAGNESIUM BEING REPLACEMED PER PROTOCOL. HOURLY ROUNDINGS COMPLETE. WILL CONTINUE TO MONITOR.
[2020-06-14 08:20] VITALS: BP 157/72
[2020-06-14 15:58] VITALS: BP 143/66
--- NOTE | 2020-06-14 18:23 | NUR ---
patient aox4, c/o chronic back pain, pain meds given per orders. Receiving IV antibiotics and tolerating well. patient up with sba to bsc. Refused therapies today d/t not feeling well. hourly rounds complete. will continue to monitor
[2020-06-14 19:45] VITALS: BP 163/86
--- NOTE | 2020-06-15 05:30 | NUR ---
PATIENT HAS REMAINED ALERT AND ORIENTED X 4 THROUGHOUT THE SHIFT AND RESTING QUIETLY ON HOURLY ROUNDS. NO STOOLS THIS SHIFT. ADEQUATE PAIN CONTROL WITH SCHEDULED TRAMADOL AND HEAT PAD OVERNIGHT. ANTIBIOTICS PER ORDER. CONTINUE TO MONITOR.
[2020-06-15 06:42] LABS: HEMATOCRIT 33.5 % (37.0-47.0); HEMOGLOBIN 11.4 gm/dL (12.0-15.0); MCH 27.8 pg (26.0-34.0); MCHC 33.9 g/dL (28.0-37.0); MCV 81.9 fL (80.0-100.0); MPV 6.4 fl. (7.2-11.1); RBC 4.09 mil/uL (4.20-5.00); RDW-CV 14.6 % (10.5-14.5)
[2020-06-15 07:00] LABS: ALBUMIN 3.3 g/dL (3.4-5.0); CALCIUM 8.2 mg/dL (8.5-10.1); CREATININE 0.8 mg/dL (0.6-1.3); POTASSIUM 4.5 mmol/L (3.5-5.1); TOTAL BILIRUBIN 0.3 mg/dL (<0.1-1.0); TOTAL PROTEIN 6.4 g/dL (6.4-8.2)
[2020-06-15] MEDS ORDERED: TRAMADOL 50 MG50 MG PO (09:25)
[2020-06-15] MEDS ORDERED: LIDOPATCH1 EACH TOP (09:25)
[2020-06-15] MEDS ORDERED: FLAGYL500 M1 PO (09:25)
[2020-06-15] MEDS ORDERED: PREDNISONE 20 M20 MG PO (09:25)
[2020-06-15 10:03] VITALS: BP 165/89
[2020-06-15 10:19] VITALS: BP 165/89
[2020-06-15] MEDS ORDERED: ULTRAM50 MG PO (10:32)
--- NOTE | 2020-06-15 11:28 | NUR ---
Pt AOx4. Discharged in stable condition. Pt had barroso removed and is voiding without difficulty. Pt has steady gait and ambulating in room. Pt belongings returned, IV removed and discharge instructions given. Prescriptions given to patient and all questions answered. Pt voiced no concerns.
[2020-06-15 12:03] VITALS: BP 165/89
== END 2020-06-15 11:57 | disposition home health service (06) | DRG 371 ==
LOC: M.ERS 09:12 → M.TBA-ER 16:42 → M.ORTHSURG 19:36
PROVIDERS: Internal Medicine; Personal Emergency Response Attendant; ADMIT Internal Medicine; ATTEND Internal Medicine
DX: A04.9 Bacterial intestinal infection, unspecified (principal); N17.0 Acute kidney failure with tubular necrosis; R65.11 Systemic inflammatory response syndrome (SIRS) of non-infectious origin with acute organ dysfunction; N39.0 Urinary tract infection, site not specified; G89.29 Other chronic pain; E86.0 Dehydration; M54.5 Low back pain; I10 Essential (primary) hypertension; E78.5 Hyperlipidemia, unspecified; J44.9 Chronic obstructive pulmonary disease, unspecified; F17.210 Nicotine dependence, cigarettes, uncomplicated; E20.9 Hypoparathyroidism, unspecified; E86.9 Volume depletion, unspecified; I95.9 Hypotension, unspecified; N83.202 Unspecified ovarian cyst, left side; R33.9 Retention of urine, unspecified; M54.30 Sciatica, unspecified side; G62.9 Polyneuropathy, unspecified; Z20.828 Contact with and (suspected) exposure to other viral communicable diseases; Z79.82 Long term (current) use of aspirin; Z79.899 Other long term (current) drug therapy; Z88.1 Allergy status to other antibiotic agents; Z88.0 Allergy status to penicillin; Z88.2 Allergy status to sulfonamides; Z88.8 Allergy status to other drugs, medicaments and biological substances; Z91.048 Other nonmedicinal substance allergy status

== ENCOUNTER 2020-10-29 10:27 | Inpatient (IN) | payer OTHER ==
[~2020-10-29] VITALS: Ht 152.4 cm; Wt 64.2 kg
[~2020-10-29 10:27] MED LIST changes: +FLAGYL500 M1 PO; +LIDOPATCH1 EACH TOP; +TRAMADOL 50 MG50 MG PO; +ULTRAM50 MG PO
[2020-10-29 10:33] VITALS: BP 156/88
[2020-10-29] MEDS ORDERED: NORVASC 2.5 MG2.5 M1 PO (10:41)
[2020-10-29] MEDS ORDERED: TRIAMTERENE-HC1 EAC3 PO (10:42)
[2020-10-29 10:54] LABS: ABSOLUTE BASOPHILS 0.1 thou/uL (0.0-0.2); ABSOLUTE EOSINOPHILS 0.1 thou/uL (0.0-0.7); ABSOLUTE LYMPHOCYTES 2.4 thou/uL (0.8-5.3); ABSOLUTE NEUTROPHILS 9.7 thou/uL (1.6-8.1); BASOPHILS 0.8 %; EOSINOPHILS 0.8 %; HEMATOCRIT 42.3 % (37.0-47.0); HEMOGLOBIN 13.8 gm/dL (12.0-15.0); LYMPHOCYTES 17.7 %; MCH 25.6 pg (26.0-34.0); MCHC 32.7 g/dL (28.0-37.0); MCV 78.3 fL (80.0-100.0); MONOCYTES 7.8 %; MPV 6.4 fl. (7.2-11.1); NUCLEATED RBCS 0 /100WBC; PLATELET COUNT* 458 thou/uL (150-400); POLYS 72.9 %; RDW-CV 15.8 % (10.5-14.5); WBC 13.3 thou/uL (4.0-11.0)
[2020-10-29 11:00] LABS: CALCIUM 8.6 mg/dL (8.5-10.1); CREATININE 1.1 mg/dL (0.6-1.3); POTASSIUM 3.1 mmol/L (3.5-5.1)
[2020-10-29 11:04] LABS: ALBUMIN 3.9 g/dL (3.4-5.0); TOTAL BILIRUBIN 0.4 mg/dL (<0.1-1.0); TOTAL PROTEIN 7.6 g/dL (6.4-8.2)
[2020-10-29 16:00] VITALS: BP 134/77
[2020-10-29 16:54] VITALS: BP 145/72
[2020-10-29 18:06] LABS: CALCIUM 7.9 mg/dL (8.5-10.1); POTASSIUM 3.1 mmol/L (3.5-5.1)
--- NOTE | 2020-10-29 18:22 | EKG ---
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: : 1945 Requested By: Jacob Anna Order Number: [id number] MD: Isidro Cook Measurements Intervals [place] Rate: 93 P: 80 WI: 153 QRS: 76 QRSD: 81 T: 73 QT: 363 QTc: 452 Interpretive Statements Sinus rhythm Compared to ECG 01/15/2019 00:25:30 Atrial premature complex(es) no longer present Short WI interval no longer present ST (T wave) deviation no longer present Electronically Signed On 10-29-2020 18:22:49 RIBBON SWEATBAND OPERATOR by Isidro Cook [email or web address] <ELECTRONICALLY SIGNED> By: Vee Cook MD, FACC 10/29/20 1822 1038 1038 Vee Cook MD, FAC /EPI
[2020-10-30] VITALS: BP 144/75
[2020-10-30 04:00] VITALS: BP 142/86
[2020-10-30 04:16] LABS: ABSOLUTE LYMPHOCYTES 0.4 thou/uL (0.8-5.3); ABSOLUTE MONOCYTES 0.1 thou/uL (0.0-1.2); ABSOLUTE NEUTROPHILS 5.9 thou/uL (1.6-8.1); BASOPHILS 0.3 %; EOSINOPHILS 0.1 %; HEMATOCRIT 36.2 % (37.0-47.0); LYMPHOCYTES 6.4 %; MCH 26.2 pg (26.0-34.0); MCHC 32.4 g/dL (28.0-37.0); MCV 80.9 fL (80.0-100.0); MONOCYTES 1.5 %; MPV 6.4 fl. (7.2-11.1); NUCLEATED RBCS 0 /100WBC; POLYS 91.7 %; RBC 4.48 mil/uL (4.20-5.00); RDW-CV 15.7 % (10.5-14.5); WBC 6.5 thou/uL (4.0-11.0)
[2020-10-30 04:35] LABS: ALBUMIN 3.2 g/dL (3.4-5.0); CALCIUM 7.6 mg/dL (8.5-10.1); POTASSIUM 3.3 mmol/L (3.5-5.1); TOTAL BILIRUBIN 0.2 mg/dL (<0.1-1.0); TOTAL PROTEIN 6.3 g/dL (6.4-8.2)
[2020-10-30 05:24] LABS: HEMOGLOBIN 11.7 gm/dL (12.0-15.0); PLATELET COUNT* 378 thou/uL (150-400)
[2020-10-30 08:04] VITALS: BP 123/76
--- NOTE | 2020-10-30 10:59 | NUR ---
ASSUMED CARE OF PT THIS AM AROUND 0715- PHARMACY BENEFITS COORDINATOR IN PLACE ORDERED, TRACING SR- UPON ASSESSMENT PT NOTED TO BE RESTING IN BED- PT A&O X4, ANXIUOS AT TIMES- CONT OF B/B- UP AD-RAMONA IN ROOM, STEADY GAIT NOTED- DIMINISHED LUNG SOUNDS NOTED- DYSPNEA NOTED ON EXERTION- NON-PRODUCTIVE COUGH- VSS, O2 SAT 94% ON RA- ABD SOFT/ROUND/NON-TENDER, BS X4 QUADS- LAST BM REPORTED 10/29/20- IV TO RIGHT AC PULLED OUT ON ACCIDENT PER PT, NEW ON TO BE PLACED- IVF PER ORDERS THIS SHIFT, IV ABT GIVEN PRESCRIBED- GOOD PO INTAKE NOTED THIS AM- PAIN 7/10 TO NECK AND BACK, PRN HYDROCODONE GIVEN THIS AM 0850- 1500 F/R STARTED THIS SHIFT PER NEPHRO- CALL LIGHT AND PERSONAL BELONGINGS WITH IN REACH- PT MAKES NEEDS KNOWN- ALL NEEDS MET AT THIS TIME-WCTM
[2020-10-30 12:00] VITALS: BP 171/87
--- NOTE | 2020-10-30 15:00 | NUR ---
Pt is A&O. Resides at home with her . Independent. Pt has a cane that she uses. Hx of [facility]. Hx of SNF. Neuro following, plan EEG today. Correct Na. Anticipate dc tomorrow.
[2020-10-30 16:00] VITALS: BP 144/71
[2020-10-31] VITALS: BP 119/58
[2020-10-31 03:51] VITALS: BP 148/58
[2020-10-31 07:07] LABS: POTASSIUM 3.3 mmol/L (3.5-5.1)
[2020-10-31 08:00] VITALS: BP 138/72; BP 148/58
--- NOTE | 2020-10-31 08:00 | NUR ---
AM ASSESSMENT COMPLETE, DEFER TO COMPUTER CHARTING. CARDAIC MONITOR TRACKING SR. ROOM AIR, SOA NOTED WITH ACTIVITY. LUNGS DIMINISHED WITH WHEEZE. REPORTING HAVING NECK/DISCOMFORT - WILL GIVE REPEAT PAIN MEDICATION WITH AM MEDS TO ASSIST WITH PAIN CONTROL. ANXIOUS, REASSURANCE GIVEN. CALL LIGHT WITHIN REACH, WILL MONITOR.
--- NOTE | 2020-10-31 11:03 | NUR ---
Therapies to see. Pain control. Pt remains SOB. Anticipate dc to home tomorrow. No needs anticipated.
[2020-10-31 12:00] VITALS: BP 143/72
[2020-10-31 16:00] VITALS: BP 139/65
[2020-10-31 23:55] VITALS: BP 111/65
[2020-11-01 03:16] VITALS: BP 144/64
[2020-11-01 04:06] LABS: HEMATOCRIT 32.2 % (37.0-47.0); HEMOGLOBIN 10.3 gm/dL (12.0-15.0); MCH 25.8 pg (26.0-34.0); MCV 80.5 fL (80.0-100.0); MPV 6.6 fl. (7.2-11.1); RDW-CV 16.5 % (10.5-14.5)
[2020-11-01 04:07] LABS: MAGNESIUM 1.5 mg/dL (1.8-2.4); POTASSIUM 3.7 mmol/L (3.5-5.1); TOTAL BILIRUBIN 0.2 mg/dL (<0.1-1.0); TOTAL PROTEIN 5.7 g/dL (6.4-8.2)
[2020-11-01 08:00] VITALS: BP 154/78
--- NOTE | 2020-11-01 10:01 | NUR ---
RECIEVED REPORT AROUND 0715. PT LYING IN BED THIS AM. IV INTACT. LEFT FOREARM. HEART MONITOR ATTACHED AT . REPORTED SOME NECK AND BACK PAIN. MEDS GIVEN PER JAN. 2000ML FLUID RESTRICTION. PT UP ADLIB. CALL LIGHT WITHIN REACH. WILL CONTINUE TO MONITOR.
[2020-11-01 12:50] VITALS: BP 151/92
--- NOTE | 2020-11-01 18:18 | NUR ---
PT UP ADLIB. IV INTACT LEFT FOREARM. INSERTED TODAY. OTHER IV INFILITRATED AND TAKEN OUT. HEART MONITOR ATTACHED AT . FLUID RESTRICTION AT 980 OUT 1999. MEDS GIVEN PER JAN. PT REPORTED NECK/BACK PAIN THROUGHOUT SHIFT. HOURLY ROUNDING PERFORMED. VISITED THIS SHIFT. CALL LIGHT WITHIN REACH. WILL CONTINUE TO MONITOR.
[2020-11-01 18:34] VITALS: BP 148/90
[2020-11-02 04:00] VITALS: BP 179/85
[2020-11-02 04:49] LABS: HEMATOCRIT 35.5 % (37.0-47.0); HEMOGLOBIN 11.1 gm/dL (12.0-15.0); MCH 25.3 pg (26.0-34.0); MCHC 31.2 g/dL (28.0-37.0); MCV 81.1 fL (80.0-100.0); MPV 6.7 fl. (7.2-11.1); RBC 4.38 mil/uL (4.20-5.00); RDW-CV 16.8 % (10.5-14.5); WBC 16.1 thou/uL (4.0-11.0)
[2020-11-02 04:57] LABS: ALBUMIN 3.2 g/dL (3.4-5.0); CALCIUM 7.5 mg/dL (8.5-10.1); CREATININE 0.9 mg/dL (0.6-1.3); MAGNESIUM 1.4 mg/dL (1.8-2.4); POTASSIUM 3.2 mmol/L (3.5-5.1); TOTAL BILIRUBIN 0.2 mg/dL (<0.1-1.0); TOTAL PROTEIN 6.2 g/dL (6.4-8.2)
[2020-11-02 08:09] VITALS: BP 163/79
--- NOTE | 2020-11-02 10:58 | NUR ---
ASSUMED CARE OF PT THIS AM AROUND 0715- TIME STUDY TECHNICIAN IN PLACE NOTED SR AT BEGINNING OF SHIFT THEN AROUND 0845 NOTED TO GO INTO A-FIB WITH RVR, EKG OBTAINED TO CONFIRM; NOTIFIED WITH ORDERS NOTED FOR DIG IV .5 AND TO CONSULT CARDIO; IV DIG GIVEN ORDERED- WITH CARDIO HERE TO ASSES WITH ORDERS NOTED FOR PO AMIO WITH 1 DOSE GIVEN AND ANOTHER ORDER FOR DIG IV TO BE GIVEN AT 1700- PT RATE NOW A-FIB AND BETTER CONTROLLED IN 110- COURSE LUNG SOUNDS NOTED WITH WHEEZES-OCCASSIONAL NON-PRODUCTIVE COUGH- DYSPNEA NOTED ON EXERTION- ABD SOFT/ROUND/NON-TENDER, BS X4 QUADS- LAST BM REPORTED 11/01/20- IV NOTED TO LEFT FA INTACT AND SL, IV ABT GIVEN THIS AM PRESCRIBED- K+ NOTED AT 3.2, AND MAG NOTED AT 1.4; BOTH CURRENLTY BEING REPLACED PER PROTOCOL- PT RATE PAIN 7/10 TO NECK ADN BACK; REPOSITIONING/DARK/QUIET ENVIRONMENT IN PLACE- CALL LIGHT AND PERSONAL BELONGINGS WITH IN REACH- ALL NEEDS MET AT THIS TIME-WCTM
[2020-11-02 11:58] VITALS: BP 160/103
[2020-11-02 15:50] VITALS: BP 164/90
[2020-11-02 17:52] LABS: MAGNESIUM 1.5 mg/dL (1.8-2.4); POTASSIUM 3.9 mmol/L (3.5-5.1)
[2020-11-02 20:20] VITALS: BP 168/94
[2020-11-02 23:46] VITALS: BP 161/77
[2020-11-03 04:44] LABS: HEMATOCRIT 35.3 % (37.0-47.0); HEMOGLOBIN 11.3 gm/dL (12.0-15.0); MCH 25.5 pg (26.0-34.0); MCV 79.8 fL (80.0-100.0); MPV 6.5 fl. (7.2-11.1); RBC 4.42 mil/uL (4.20-5.00); RDW-CV 16.7 % (10.5-14.5); WBC 13.6 thou/uL (4.0-11.0)
[2020-11-03 04:54] LABS: CALCIUM 8.9 mg/dL (8.5-10.1); CREATININE 0.9 mg/dL (0.6-1.3); POTASSIUM 3.9 mmol/L (3.5-5.1)
[2020-11-03 04:59] VITALS: BP 180/88
[2020-11-03 05:15] VITALS: BP 167/83
--- NOTE | 2020-11-03 05:57 | NUR ---
PT CARE ASSUMED AT 1930. SAT MAINTAINED IN RA. ALERT AND ORIENTED X4. C/O PAIN, MEDICATION GIVEN PER EMAR. CALL LIGHT WITHIN REACH AND BED IN LOW POSITION. HOURLY ROUNDING DONE FOR PT SAFETY.
[2020-11-03 08:00] VITALS: BP 173/79
--- NOTE | 2020-11-03 10:22 | EKG ---
[place] [address] ELECTROCARDIOGRAM REPORT Name: FULTONLUTHER Room: [address] ADM IN M.R.#: [id number] Admission: 10/29/20 Attend Phys: Perez Bassett, Discharge: Date of : 47 Date of Service: 11/02/20 0854 Report #: [id number] THIS REPORT FOR: //name// [facility] Test Date: 2020-11-02 Test Time: 08:54:47 Pat Name: LUTHER FULTON Department: Room: [address] Gender: F Quality Assurance Advisor: : 1945 Requested By: Jessica Martinez Order Number: [id number] Claude MD: Moshe Cason Measurements Intervals Raymond Rate: 163 P: [place]: QRS: 75 QRSD: 72 T: 246 QT: 241 QTc: 397 Interpretive Statements Atrial fibrillation with rapid V-rate Repolarization abnormality, prob rate related Compared to ECG 10/29/2020 10:38:54 Early repolarization now present Sinus rhythm no longer present Electronically Signed On 11-03-2020 10:22:18 COMPOSITION MOLDER by Moshe Cason [email or web address] <ELECTRONICALLY SIGNED> By: Moshe Cason MD, [facility] 11/03/20 1022 0854 0854 Moshe Cason MD, [facility] /EPI
--- NOTE | 2020-11-03 10:23 | EKG ---
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 /EPI
--- NOTE | 2020-11-03 11:49 | NUR ---
Pt in Afib, cardiology following. Amio load planned. Anticipate dc in a few days to home with HH.
--- NOTE | 2020-11-03 14:17 | EKG ---
[place] [address] ELECTROCARDIOGRAM REPORT Name: LUTHER FULTON Room: [address] ADM IN M.R.#: [id number] Admission: 10/29/20 Attend Phys: Perez Bassett, Discharge: Date of : 47 Date of Service: 11/03/20 1100 Report #: [id number] THIS REPORT FOR: //name// [facility] Test Date: 2020-11-03 Test Time: 11:00:06 Pat Name: LUTHER FULTON Department: Room: [address] Gender: F Fisher Weir: : 1945 Requested By: Moshe Cason Order Number: [id number] Claude MD: Moshe Cason Measurements Intervals [place] Rate: 82 P: 73 CA: 125 QRS: 56 QRSD: 74 T: 39 QT: 354 QTc: 414 Interpretive Statements Sinus rhythm nonspecific t wave changes Compared to ECG 11/02/2020 11:50:29 No significant changes Electronically Signed On 11-03-2020 14:17:00 CRIMINAL JUSTICE PROFESSOR by Moshe Cason [email or web address] <ELECTRONICALLY SIGNED> By: Moshe Cason MD, FACC 11/03/20 1417 1100 1100 Moshe Cason MD, [facility] /EPI
--- NOTE | 2020-11-03 18:37 | NUR ---
ASSUMED PT CARE AT 0730, PT AOX4 AND C/O NECK PAIN THROUGHOUT SHIFT TREATED W/ PRN NORCO W/ RELIEF. PT ALSO C/O ANXIETY TREATED W/ VALIUM. PT WORKED WELL W/ NURSING STAFF TODAY AND GOAL IS TO DC TOMORROW LONG SHE TOLERATES NEW CARDIAC MEDS WELL. PT NOTED TO BE LIGHTLY THRASHING IN BED THIS EVENING AND STATED "I DON'T KNOW WHAT'S HAPPENING TO ME", I ASKED IF SHE WAS IN PAIN, SHE SAID YES, GAVE NORCO AT THIS TIME ALONG W/ SCHEDULED DIGOXIN, PT THRASHING STOPPED AND STATES SHE FEELS BETTER. MEDS PER JAN, HOURLY ROUNDING OBSERVED, CALL LIGHT W/IN REACH, FLUID RESTRICTION ONGOING.
[2020-11-03 21:50] VITALS: BP 122/57
[2020-11-03 23:15] VITALS: BP 128/63
[2020-11-04 04:00] VITALS: BP 176/80
--- NOTE | 2020-11-04 06:26 | NUR ---
PTS IV CAUSING PAIN. R FA IV DC'D. PT REFUSED NEW ONE BC SHE IS DISCHARGING TODAY.
[2020-11-04] MEDS ORDERED: LANOXIN 0.25M0.25 M1 PO (06:53)
[2020-11-04] MEDS ORDERED: PREDNISONE 10 M10 M1 PO (06:53)
[2020-11-04] MEDS ORDERED: DILTIAZEM 24HR180 M1 PO (06:53)
[2020-11-04] MEDS ORDERED: PULMICORT0.5 MG/2 M INH (06:53)
[2020-11-04] MEDS ORDERED: LAMOTRIGINE25 MG PO (06:53)
[2020-11-04] MEDS ORDERED: FLUCONAZOLE 10100 MG PO (06:53)
[2020-11-04] MEDS ORDERED: IPRAT-ALBUT 0.5-3 ML INH (06:53)
[2020-11-04] MEDS ORDERED: PACERONE 200 M200 M1 PO (06:53)
[2020-11-04] MEDS ORDERED: DOXYCYCLINE 10100 MG PO (06:53)
[2020-11-04] MEDS ORDERED: NEBULIZER MISCELL (07:19)
[2020-11-04 11:55] VITALS: BP 154/74
--- NOTE | 2020-11-05 11:48 | CON ---
[address] [address] CONSULTATION Name: LUTHER FULTON Room: [address] IN M.R.#: [id number] Admission: 10/29/20 Attend Phys: Perez Bassett MD Discharge: 11/04/20 Date of : 47 Report #: [id number] THIS REPORT FOR: cc: Lucero Lucas MD, Katrina MD ~ Moshe Cason MD [facility] DATE OF SERVICE: 11/02/2020 CARDIOLOGY CONSULTATION HISTORY OF PRESENT ILLNESS: The patient is a 75-year-old white female, who I was asked to see in the hospital today after she was noted to be in atrial fibrillation. The patient has an extensive past medical history. She had several hospitalizations here at [facility] in the past. She actually had an admission back in 2013 with pancreatitis. She apparently saw Dr. Vences at that time. She apparently had a syncopal spell and she underwent a tilt table test that was negative for neurocardiogenic syncope. She was admitted here in 2015 with shortness of breath. She was felt to have exacerbation of COPD. She ruled in for a non-STEMI. She had a stress test that showed no evidence of ischemia. She has been followed by my partner, Dr. Cook. She was admitted here in 2017 with diarrhea. She has a history of paroxysmal atrial fibrillation, but has never required cardioversion. She was admitted here in 12/2018 with pneumonia. She does have chronic kidney disease. She was admitted here in June of this year with dehydration secondary to urinary tract infection and developed renal insufficiency. She has never required dialysis. She notes about 4 months ago, she was admitted to [facility] and had a stress test. She is not very active at this time, but denies a history of chest pain or myocardial infarction. She does get short of breath with exertion. She has had no cough or edema. She notes recently at home, her heart rate will be fast. She has had lightheadedness, but no syncope. She actually came to the Emergency Room recently. She complained that she was having jerking movements and she has thought she was having a seizure. She apparently did not pass out and fell down. She has been confused. She was admitted for further evaluation and treatment. On the monitor today, she was in atrial fibrillation; I was asked to see her for further evaluation and treatment. PAST MEDICAL HISTORY: She has had previous back surgery and previous carotid endarterectomy. She has a history of hypertension and parathyroidectomy. She has had pancreatitis in the past. MEDICATIONS: Consist of pravastatin, omeprazole, Singulair, amlodipine, Dyazide, Celexa, aspirin, Flexeril, Valium, Flonase. ALLERGIES: SHE HAS AN INTOLERANCE TO PENICILLIN, SULFA, [place] [address] CONSULTATION Name: LUTHER FULTON Room: [address] IN ..#: [id number] Admission: 10/29/20 Attend Phys: Perez Bassett MD Discharge: 11/04/20 Date of : 47 Report #: [id number] FAMILY HISTORY: Significant for stroke. SOCIAL HISTORY: She is . She smokes half-pack cigarettes a day. No alcohol abuse. REVIEW OF SYSTEMS: She has had a previous TIA. She has COPD, has inhalers at home. No history of liver disease. She has chronic kidney disease. No cancer. No psychiatric illness. No chronic skin condition. PHYSICAL EXAMINATION: GENERAL: Revealed an elderly female lying in bed. She appeared in no distress. VITAL SIGNS: She had a blood pressure of 150/80, pulse is 150 and irregular. She is afebrile. HEENT: She was anicteric. Conjunctivae pink. Mucous membranes moist. NECK: Veins do not appear distended. CHEST: Revealed coarse breath sounds bilaterally. HEART: Irregular, tachycardia. No significant murmur. ABDOMEN: Soft. EXTREMITIES: Had no edema. SKIN: Cool and dry. NEUROLOGIC: Nonfocal. Her ECG on admission 4 days ago showed a sinus rhythm with nonspecific ST-segment changes. Today's ECG shows atrial fibrillation with rapid ventricular response rate, nonspecific ST and T-wave changes. Her last echocardiogram was in 2016 here at [facility] that showed an ejection fraction of over 65%. No significant valvular abnormalities. She actually had a nuclear stress test in 2016 that showed no evidence of ischemia. Her carotid Doppler study done on admission 2 days ago showed plaquing, no significant stenosis. CT scan of the head on admission showed cerebral atrophy and white matter changes. Her chest x-ray on admission showed no acute abnormalities. LABORATORY WORK: Sodium 139, potassium 3.2, BUN 22, creatinine 0.9; it was actually up to 4.8 in May. Glucose 160. Albumin 3.2. Troponin 0.06. Previous LDL in 2016 was only 52. Previous TSH is 0.6. Her white blood cell count 16.1, hemoglobin 11.1, hematocrit 35.5. IMPRESSION AND RECOMMENDATIONS: 1. Paroxysmal atrial fibrillation. She apparently was told by Dr. Cook in the past her atrial fibrillation was related to her beta agonist. Because of recurrent atrial fibrillation, I would consider antiarrhythmic therapy. I would not recommend anticoagulation because of possible seizure. 2. Hypertension. The patient has been on a calcium can and diuretic. [facility] [address] [place] [address] CONSULTATION Name: LUTHER FULTON Room: [address] IN .R.#: [id number] Admission: 10/29/20 Attend Phys: Perez Bassett MD Discharge: 11/04/20 Date of : 47 Report #: [id number] 3. Previous carotid endarterectomy. 4. Tobacco abuse. 5. Chronic obstructive pulmonary disease. 6. Chronic kidney disease. 7. Possible seizures. <ELECTRONICALLY SIGNED> By: Moshe Cason MD, FACC 11/05/20 1148 [id number] Cason MD, FACC /nt
--- NOTE | 2020-11-05 13:54 | NUR ---
Made a follow up phone call to Mrs. Berry. The person that answered the phone askd if I would talk with him, that Mrs Berry was "kind of out of it right now". He stated her health was fine but things were not going well. He sounded irritated. I asked if he would tell her that I called to check on her and instructed him to call 911 if they had emergency health problems.
--- NOTE | 2020-11-07 13:52 | CON ---
[address] [address] CONSULTATION Name: LUTHER FULTON Room: [address] IN M.R.#: [id number] Admission: 10/29/20 Attend Phys: Perez Bassett MD Discharge: 11/04/20 Date of : 47 Report #: [id number] THIS REPORT FOR: cc: Lucero Lucas MD, Katrina MD ~ Quinton Arriaga MD DATE OF SERVICE: 10/30/2020 HISTORY OF PRESENT ILLNESS: This is a 75-year-old female patient whose history is pretty unusual. She said she had a seizure. She basically passed out. I do not know whether there was any tonic-clonic activity. She said she has multiple episodes. She said she had a stroke. She went to [facility] did not find any documentation she had a stroke, but she believes strokes can occur even when the testing is normal, so she is not convinced that she did not have a stroke. She said she had a seizure 2-3 years ago and that was because of hyponatremia. She is still hyponatremic, but she has been admitted with multiple other things related to the kidney. In fact, she has been admitted multiple times here. She saw Dr. Rooney. She thought she may have had a provoked seizure. She had an EEG in 2015, which did not show any abnormality. I saw her in 2012 and there was a question of seizure even at that time. These episodes are going on for a long time. REVIEW OF SYSTEMS: Also positive for multiple problems. Those have been summarized in multiple consultants' note. She had multiple MRIs. She had one in 2016 and she had multiple MRA. She has a history of hypertension, hypoxia, diarrhea, pancreatitis, COPD, carotid stenosis as I understand, cervical spasms and anxiety. That was a relevant 14-point review of system. PAST MEDICAL HISTORY: Positive for blindness in the right eye. FAMILY HISTORY: Unremarkable. SOCIAL HISTORY: She has a history of smoking, but does not drink alcohol. PHYSICAL EXAMINATION: Indicate she is alert, responsive, able to follow simple and complex command. 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 Neuromuscular examination is symmetrical. There is no meningeal sign. She is reasonably well-built individual. Vital signs were noticed, blood pressure 144/71, respirations 18, pulse is 101, temperature 98.1. LABORATORY DATA: White count is 6.5. CT shows moderate atrophy. She believes [place] [address] CONSULTATION Name: LUTHER FULTON Room: [address] IN [facility].#: [id number] Admission: 10/29/20 Attend Phys: Perez Bassett MD Discharge: 11/04/20 Date of : 47 Report #: [id number] IMPRESSION: This patient appeared to have seizures over a period of time. We have never found any cause. I had a long discussion with this patient. I discussed with her that we will get the record from [facility]. We will put the patient on Lamictal. I discussed the pros and cons of that and I spent more than 50 minutes of time taking care of this patient today, majority was spent counseling and coordinating. Her trigger factor like hyponatremia need to be corrected, but that is already being addressed by Nephrology. Thank you very much for this referral. <ELECTRONICALLY SIGNED> By: Quinton Arriaga MD 11/07/20 1352 [id number] Arriaga MD /nt
--- NOTE | 2020-11-07 13:52 | EEG ---
[facility] [address] [place] [address] EEG STUDY REPORT Name: LUTHER FULTON Room: [address] IN M.R.#: [id number] Admission: 10/29/20 Attend Phys: Perez Bassett MD Discharge: 11/04/20 Date of : 47 Report #: [id number] THIS REPORT FOR: cc: Lucero Lucas MD, Katrina MD ~ Quinton Arriaga MD DATE OF SERVICE: 10/30/2020 This patient is being evaluated for the possibility of seizure. EEG was done by placing the electrode by standard 10-20 system of electrode placement. Both referential and sequential montages were used for recording. Background activity in this patient's EEG is difficult to determine because the patient's EEG had a lot of artifact. The best I can tell, it shows about 8-9 Hz and 30 microvolt. The patient went to sleep that is associated with bilateral slowing and vertex sharp waves. Throughout the record, no active epileptiform activity was noticed. IMPRESSION: This patient's EEG demonstrates lot of artifact and is difficult to interpret. It does not appear to be showing any active epileptiform activity. It might be mentioned that EEG can be normal in a patient with a seizure disorder. Thank you very much for this referral. <ELECTRONICALLY SIGNED> By: Quinton Arriaga MD 11/07/20 1352 [id number] Arriaga MD /conor
== END 2020-11-04 12:52 | disposition home health service (06) | DRG 177 ==
LOC: M.ERS 10:27 → M.TBA-ER 12:53 → M.2W 12:53
PROVIDERS: Emergency Medicine; Internal Medicine; Internal Medicine Nephrology; ADMIT Internal Medicine; ATTEND Internal Medicine
DX: J69.0 Pneumonitis due to inhalation of food and vomit (principal); J96.21 Acute and chronic respiratory failure with hypoxia; E87.1 Hypo-osmolality and hyponatremia; I48.20 Chronic atrial fibrillation, unspecified; D68.69 Other thrombophilia; J44.1 Chronic obstructive pulmonary disease with (acute) exacerbation; J44.0 Chronic obstructive pulmonary disease with (acute) lower respiratory infection; E86.0 Dehydration; T50.2X5A Adverse effect of carbonic-anhydrase inhibitors, benzothiadiazides and other diuretics, initial encounter; E87.8 Other disorders of electrolyte and fluid balance, not elsewhere classified; F17.210 Nicotine dependence, cigarettes, uncomplicated; E78.5 Hyperlipidemia, unspecified; N18.9 Chronic kidney disease, unspecified; E87.6 Hypokalemia; R56.9 Unspecified convulsions; I12.9 Hypertensive chronic kidney disease with stage 1 through stage 4 chronic kidney disease, or unspecified chronic kidney disease; G62.9 Polyneuropathy, unspecified; I48.0 Paroxysmal atrial fibrillation; Z20.828 Contact with and (suspected) exposure to other viral communicable diseases; Z79.82 Long term (current) use of aspirin; Z79.899 Other long term (current) drug therapy; Z88.1 Allergy status to other antibiotic agents; Z88.0 Allergy status to penicillin; Z88.2 Allergy status to sulfonamides; Z88.8 Allergy status to other drugs, medicaments and biological substances; Z85.118 Personal history of other malignant neoplasm of bronchus and lung; Y92.89 Other specified places as the place of occurrence of the external cause